=== PATIENT | male | born 1965 | race Caucasian/White ===

== ENCOUNTER 2017-02-11 11:43 | Emergency (ER) | payer OTHER ==
[~2017-02-11] VITALS: Ht 175.3 cm; Wt 86.2 kg
--- NOTE | ~2017-02-11 | CR72 ---
[facility] A Service [facility] RADIOLOGY TEXT RESULTS PATIENT: LINA COHEN LOCATION: [facility] : 61 UNIT #: [id number] AGE: [address]: Jorge Slater MD SEX: M ORDER DR: [id number] [place], [place] [address] [id number] MR#: [id number] Acc #: [id number] NAME: LINA COHEN. : 1965 SEX: M STUDY DATE/TIME: 02/11/2017 13:47 UNIT: [facility] ROOM: STUDY DESCRIPTION: CR Chest Single View Portable Attending Physician: Nii Slater M.D. Ordering Physician: Ed Jonathon Dyson M.D. Primary Care Physician: So Whitfield M.D. MEDICAL IMAGING REPORT This report is preliminary unless electronic signature is present EXAM Portable chest. HISTORY Dizziness and near syncope, short of air started today. History of internal phleboliths. COMMENT A single portable view of the chest timed 13:47, 02/11/17 reviewed. Comparison 06/11/15. The heart size is normal. A small amount of atelectasis or scarring again noted in the left base laterally. Calcified granuloma at the right base. No acute-appearing parenchymal infiltrates or acute congestive failure. No pneumothorax or pleural effusion. IMPRESSION No active disease. Dictated by... Jennifer Epstein M.D. THIS IS AN ELECTRONICALLY VERIFIED REPORT Jennifer Epstein M.D. at 02/12/2017 10:21 AM CADE/mikhail TD: 02/11/2017 20:45 JOB #: [id number] [facility] A Service [facility] RADIOLOGY TEXT RESULTS PATIENT: LINA COHEN LOCATION: [facility] : 61 UNIT #: [id number] AGE: [address]: Jorge Slater MD SEX: M ORDER DR: MEDICAL IMAGING REPORT Page 1 of 1 COPY
--- NOTE | ~2017-02-11 | EKG ---
PATIENT: LINA COHEN UNIT #: [id number] Ventricular Rate: 97 BPM Atrial Rate: 97 BPM P-R Interval: 150 ms QRS Duration: 80 ms Q-T Interval: 342 ms QTC Calculation(Bezet): 434 ms P Round Top: 50 degrees Calculated R Round Top: 24 degrees Calculated T Round Top: 36 degrees Diagnosis Line: Normal sinus rhythm Diagnosis Line: Normal ECG Diagnosis Line: When compared with ECG of 11-JUN-2015 07:54, Diagnosis Line: No significant change was found Diagnosis Line: Confirmed by INDU LINCOLN MD ([id number]) on 02/11/2017 Diagnosis Line: 6:59:08 PM INTERPRETING MD: LATONIA SEBASTIAN
[~2017-02-11 11:43] MED LIST: ACETAMINOPHEN650 M4 PO; ALBUTEROL17 GM INH; AMBIEN10 MG PO; ASPIRIN ENTERI325 M1; ASPIRIN81 M2 PO; ASPIRIN81 MG PO; BROMFED DM COU118 ML PO; D3 DOTS2000 UNIT PO; EFFEXOR75 M2 PO; FISH OIL 1,0001 EAC1 PO; FISH OIL 1,001000 M1 PO; FLOMAX0.4 M1; FLONASE 0.05% N16 G1; LOPID600 MG PO; LOPRESSOR PO; METOPROLOL SUCC50 MG PO; METOPROLOL TAR25 MG; NAPROSYN-EC500 M1 PO; OMEPRAZOLE20 M2 PO; PERCOCET10 PO; PRAVASTATIN SOD80 MG PO; PRILOSEC40 MG PO; RYTHMOL150 M1 PO; SINGULAIR PO; ZYRTEC PO
[2017-02-11 13:47] LABS: URINE SOURCE CLEAN CATCH
[2017-02-11 14:01] LABS: URINE APPEARANCE CLEAR; URINE BILIRUBIN NEG (NEG); URINE BLOOD TRACE (NEG); URINE COLOR YELLOW; URINE GLUCOSE NEG (NEG); URINE KETONE NEG (NEG); URINE LEUKOCYTE ESTERASE NEG (NEG); URINE NITRATE NEG (NEG); URINE PROTEIN NEG (NEG); URINE SPECIFIC GRAVITY 1.016 (1.003-1.035); URINE UROBILINOGEN 0.2 MG/DL (NEG)
[2017-02-11 14:04] LABS: URBCS1 AUWI 0-2 /[HPF] (0-2); URINE BACTERIA AUWI NEG (NEGATIVE); URINE SQUAMOUS EPITHELIAL CELL NONE SEEN /[HPF]; UWBCS1 AUWI 0-2 (0-5)
[2017-02-11 14:05] LABS: BASOPHIL% 0.3 % (0-2.5); EOSINOPHIL# 0.1 X10e3 (0-0.7); EOSINOPHIL% 0.5 % (0.0-7.0); HEMATOCRIT 42.9 % (38.0-50.0); HEMOGLOBIN 14.8 gm/dL (13.0-16.0); LYMPHOCYTE# 2.7 X10e3 (1.0-3.5); LYMPHOCYTE% 25.2 % (17.0-45.0); MEAN CELL VOLUME 92.6 FL (83-96); MEAN CORPUSCULAR HGB CONC 34.6 g/dL (30-36); MEAN PLATELET VOLUME 8.3 FL (6.5-11.5); MONOCYTE# 1.3 X10e3 (0-1.0); MONOCYTE% 11.7 % (3.0-12.0); NEUTROPHIL# 6.7 X10e3 (1.5-7.1); NEUTROPHIL% 62.3 % (40-75); PLATELET COUNT 269 X10e3 (140-420); RED BLOOD COUNT 4.63 X10e (3.90-5.60); RED CELL DISTRIBUTION WIDTH 13.2 % (11.0-15.5); WHITE BLOOD COUNT 10.8 X10e3 (4.0-10.5)
[2017-02-11 14:10] LABS: CULTURE INDICATED? NO
[2017-02-11 14:14] LABS: POC - CKMB <1.0 ng/mL (0.0-7.9); POC - TROPONIN <0.05 ng/mL (<=0.05)
[2017-02-11 14:17] LABS: DIFF IND NO
[2017-02-11 14:33] LABS: ALBUMIN SERUM 4.3 g/dL (3.5-5.0); BILIRUBIN, DIRECT 0.2 mg/dL (0.0-0.2); BILIRUBIN,INDIRECT 0.5 mg/dL (0.0-0.9); BILIRUBIN,TOTAL 0.7 mg/dL (0.2-2.0); BUN/CREATININE RATIO 15.71; CALCIUM SERUM 9.3 mg/dL (8.4-10.2); CREATININE SERUM 0.7 mg/dL (0.6-1.4); GLOM FILT RATE Estimated 107.8 mL/min (>60); POTASSIUM 4.1 mmol/L (3.5-5.1); PROTEIN TOTAL SERUM 7.7 g/dL (6.0-8.3)
[2017-02-11 15:29] LABS: INFLUENZA A NEG (NEG); INFLUENZA B NEG (NEG)
[2017-02-11 15:29] LABS: POC - CKMB <1.0 ng/mL (0.0-7.9); POC - TROPONIN <0.05 ng/mL (<=0.05)
== END 2017-02-11 17:00 | disposition home or self-care (01) ==
LOC: CED 11:43
PROVIDERS: Emergency Medicine
DX: B34.9 Viral infection, unspecified (principal); R42 Dizziness and giddiness; I48.91 Unspecified atrial fibrillation; Z98.890 Other specified postprocedural states
CPT/HCPCS: 36415; 71010; 80048; 80076; 81003; 82553; 84484; 85025; 87804; 93005; 96360; 99284